=== PATIENT | male | born 1960 | race Caucasian/White ===

== ENCOUNTER 2024-08-20 22:53 | Emergency (ER) | payer OTHER, SELFPAY ==
[2024-08-20 23:01] VITALS: BP 145/91
--- NOTE | 2024-08-20 23:02 | ED.GENMED ---
ED Provider Triage
<Julian Dang PA-C - Last Filed: 08/20/24 23:03>
-
Patient seen by provider in Triage?: Seen in Triage
Attestation: A medical screening examination has been initiated by a qualified medical provider. Based on the assessment performed at this time, it has been determined that an emergent medical condition may exist and the patient has been informed
that further medical evaluation and possible additional diagnostic testing may be needed.
HPI: 64-year-old male presenting to the ER for evaluation of generalized weakness, discomfort all over, not eating or drinking very much over the last 2 to 3 days. Tuesday was vomiting but states no vomiting since and has not had any diarrhea. No
fevers or other infectious symptoms. Appears quite uncomfortable. Labs and EKG ordered
GENERAL: Alert , in no apparent distress
EYE: No visual abnormalities.
NECK: Trachea midline
ENT: No visible abnormalities.
LUNGS: No acute respiratory distress
NEUROLOGICAL: Alert and oriented
SKIN: Skin intact. No visible changes.
MUSCULOSKELETAL: Moving extremities normally
PSYCH: Normal and appropriate interaction.
This is a medical evaluation conducted in person to initiate diagnostic evaluation and provide initial therapeutics. Please see further documentation by the treating clinician.
History of Present Illness
<Julian Dang PA-C - Last Filed: 08/20/24 23:03>
General
Chief Complaint: Weakness
Time Seen by Provider: 08/21/24 00:25
<Ximena Marrero NP - Last Filed: 08/21/24 02:16>
General
Source: patient
Exam Limitations: none
History of Present Illness
History of Present Illness:
Patient to ED wtih complaint of weakness. Atate he vomited Tuesday night. Has not felt like eating since. TO ED via EMS. He denies fever/chills.
Past History
<Julian Dang PA-C - Last Filed: 08/20/24 23:03>
Past History
ED Past Medical History: None
ED Past Surgical History: Orthopedic
Social History
Tobacco: Former smoker
Alcohol: None
Personal:
Living: alone
Employment: Employed
Review of Systems
<Ximena Marrero NP - Last Filed: 08/21/24 02:16>
Review of Systems
Allergies reviewed?: Yes
All Other Systems: ROS reviewed and negative except as documented in HPI and ROS
Constitutional: Reports no symptoms
EENT: Reports no symptoms
Respiratory: Reports no symptoms
Cardiac: Reports no symptoms
ABD/GI: Reports vomiting (Reports vomiting tuesday PM) and anorexia
: Reports no symptoms
Musculoskeletal: Reports no symptoms
Skin: Reports other (ingrown toenail right great toe)
Neurological: Reports weakness
Psychiatric: Reports no symptoms
Phy Exam
<Ximena Marrero NP - Last Filed: 08/21/24 02:16>
General Physical Exam
General Presentation: well appearing and no apparent distress
General age: appears stated age
General Skin: warm and dry
General Habitus: normal
General Mental: alert
Cardiovascular Exam
Cardiovascular Exam: regular rate/rhythm and no edema
Gastrointestinal Exam
Gastrointestinal Exam: normal bowel sounds, non tender, soft, no organomegaly, no pulsatile mass and non distended
Musculoskeletal Exam
Musculoskeletal Exam: full ROM and neuro vasc intact
Skin Exam
Skin Exam: warm/dry and other (Ingrown toenail right great toe)
Psychiatric Exam
Psychiatric Exam: normal mood/affect
Course
<Julian Dang PA-C - Last Filed: 08/20/24 23:03>
Orders/Labs/Results
Orders:
Orders
08/20/24 23:01
Electrocardiogram (*1) Urgent
Reason for Study: Fatigue / Weakness
EKG- Treatment ONCE
08/20/24 23:06
Bedside Glucose- Treatment ONCE
08/20/24 23:17
Complete Blood Count/With Diff Urgent
Comprehensive Metabolic Panel Urgent
Lipase Urgent
Comment: ADD ON
Troponin I Urgent
08/21/24 00:31
Add On- LAB Urgent
Tests Added?: Lipase
0.9% Sodium Chloride 1000 ml [Nss] 1,000 ml IV BOLUS
Ondansetron Injectable [Zofran] 4 mg IV NOW STA
08/21/24 01:28
Orthostatic VS- Treatment ONCE
08/21/24 02:06
Cephalexin Monohydrate [Keflex] 500 mg PO NOW STA
Abnormal Lab Results
08/20/24 08/20/24
23:14 23:17
Absolute Monos (auto) 1.1 H 10^3/uL
(0.1-0.6)
Monocytes % 14.4 H %
(1.7-9.3)
Carbon Dioxide 17 L mmol/L
(22-30)
BUN 31 H mg/dl
(9-20)
Glucose 123 H mg/dl
(70-99)
Total Bilirubin 1.7 H mg/dl
(0.2-1.3)
POC Glucose 121 H mg/dl
(70-99)
08/20/24 23:17
08/20/24 23:17
Vital Signs
Initial and Last Documented VS:
Initial Vital Signs
Pulse Resp BP Pulse Ox
86 28 145/91 100
08/20/24 23:01 08/20/24 23:01 08/20/24 23:01 08/20/24 23:01
Last Documented Vital Signs
Pulse Resp BP Pulse Ox
74 15 134/92 100
08/21/24 02:00 08/21/24 02:00 08/21/24 02:00 08/21/24 02:00
<Ximena Marrero NP - Last Filed: 08/21/24 02:16>
Orders/Labs/Results
Orders:
Orders
08/20/24 23:01
Electrocardiogram (*1) Urgent
Reason for Study: Fatigue / Weakness
EKG- Treatment ONCE
08/20/24 23:06
Bedside Glucose- Treatment ONCE
08/20/24 23:17
Complete Blood Count/With Diff Urgent
Comprehensive Metabolic Panel Urgent
Lipase Urgent
Comment: ADD ON
Troponin I Urgent
08/21/24 00:31
Add On- LAB Urgent
Tests Added?: Lipase
0.9% Sodium Chloride 1000 ml [Nss] 1,000 ml IV BOLUS
Ondansetron Injectable [Zofran] 4 mg IV NOW STA
08/21/24 01:28
Orthostatic VS- Treatment ONCE
08/21/24 02:06
Cephalexin Monohydrate [Keflex] 500 mg PO NOW STA
Abnormal Lab Results
08/20/24 08/20/24
23:14 23:17
Absolute Monos (auto) 1.1 H 10^3/uL
(0.1-0.6)
Monocytes % 14.4 H %
(1.7-9.3)
Carbon Dioxide 17 L mmol/L
(22-30)
BUN 31 H mg/dl
(9-20)
Glucose 123 H mg/dl
(70-99)
Total Bilirubin 1.7 H mg/dl
(0.2-1.3)
POC Glucose 121 H mg/dl
(70-99)
08/20/24 23:17
08/20/24 23:17
Vital Signs
Initial and Last Documented VS:
Initial Vital Signs
Pulse Resp BP Pulse Ox
86 28 145/91 100
08/20/24 23:01 08/20/24 23:01 08/20/24 23:01 08/20/24 23:01
Last Documented Vital Signs
Pulse Resp BP Pulse Ox
74 15 134/92 100
08/21/24 02:00 08/21/24 02:00 08/21/24 02:00 08/21/24 02:00
<Ximena Marrero NP - Last Filed: 08/21/24 02:16>
Update Note
Update Note:
Patient to ED for weakness after vomiting episode tuesday PM. Poor appetite since. No abdominal pain. NO vomiting in ED. Labs reviewed, no concerning findings. WIll dscharge home. Recommend clear liquids with gradual increase in diet. Follow
up with PCP in AM. Also with ingrown toenail right great toe. I offered to give digital block and cut nail away from cuticle however he insists on general anesthesia. I explained that this would not be appropriate however he declines
intervention. Will place on keflex, given number for podiatry follow up . Recommend warm soaks
ED Attending Note
<Julian Dang PA-C - Last Filed: 08/20/24 23:03>
-
Portions of this chart may have been created with voice recognition software.� Occasional wrong word or��sound alike� substitutions may have occurred due to the inherent limitations of voice recognition software.
Discharge Plan
Departure
Patient Disposition: Home (Routine Discharge)
Date of Disposition: 08/21/24
Time of Disposition: 02:07
Patient with high blood pressure during this ER visit?: No
Condition: Good
Covid-19: Not Applicable
Discharge Problem:
Weakness
Instructions: Generalized Weakness (DC), Ingrown Toenail ED, Clear Liquid Diet
Prescriptions:
New
cephalexin 500 mg capsule
500 mg PO TID 10 Days Qty: 30 0RF
No Action
pantoprazole 40 MG tablet,delayed release (DR/EC)
40 mg PO DAILY
Referrals:
Kayla Salas DPM [Specified Professional Personl] - Call in 1-3 days for appt
UNKNOWN - PT NOT,INTERVIEWE [Family Provider] -
Interventions
Interventions:
*Risk Screen - Suicide Last Done: 08/20/24 23:03
*General Assessment Last Done: 08/21/24 01:57
*Neglect/Abuse Screening Last Done: 08/21/24 01:57
*ED COVID-19 Vaccine History Last Done: 08/21/24 01:57
ED- Cardiac Assessment Last Done: 08/21/24 00:39
ED- Neurological Assessment Last Done: 08/21/24 00:39
ED- Pulmonary Assessment Last Done: 08/21/24 00:39
Discharge Date and Time
Print Language: PRYDEINIG
[2024-08-20 23:14] LABS: Glucose - Point of Care 121 mg/dl (70-99)
[2024-08-20 23:29] LABS: % Basophils 0.4 % (0-2); % Eosinophils 0.8 % (0-6); % Immature Granulocytes 0.4 % (0-0.5); % Monocytes 14.4 % (1.7-9.3); Absolute Eosinophils 0.1 10^3/uL (0-0.7); Absolute Lymphocytes 1.7 10^3/uL (1.2-3.4); Absolute Monocytes 1.1 10^3/uL (0.1-0.6); Absolute Neutrophils 4.7 10^3/uL (1.4-6.5); Hematocrit 45.1 % (39.0-52.0); Hemoglobin 16.1 g/dL (13.0-18.0); Mean Corp Hgb Conc. 35.7 g/dL (33.0-37.0); Mean Corpuscular Hgb 30.4 pg (27.0-31.0); Mean Corpuscular Volume 85.3 fL (80.0-94.0); Mean Platelet Volume 9.3 fL (7.4-10.4); Nucleated Red Blood Cells % 0 % (-); Platelet Count 249 10^3/uL (130-400); Red Blood Cell Count 5.29 10^6/uL (4.70-6.10); Red Cell Dist. Width 12.3 % (11.5-14.5); White Blood Cell Count 7.6 10^3/uL (4.8-10.8)
[2024-08-20 23:47] VITALS: BP 106/88
[2024-08-20 23:50] LABS: ALT (SGPT) 39 U/L (0-50); AST (SGOT) 34 U/L (17-59); Albumin 4.7 g/dl (3.5-5.0); Alkaline Phosphatase 52 U/L (38-126); Blood Urea Nitrogen 31 mg/dl (9-20); Carbon Dioxide 17 mmol/L (22-30); Chloride 105 mmol/L (98-107); Glucose 123 mg/dl (70-99); Sodium 141 mmol/L (135-145); Total Bilirubin 1.7 mg/dl (0.2-1.3); Total Protein 7.4 g/dl (6.3-8.2); eGFR > 60.00
[2024-08-20 23:53] LABS: Troponin I < 0.012 ng/ml
[2024-08-21] VITALS (8 sets, daily range): BP systolic 130–145; BP diastolic 89–100; PULSE 76–87; BMI 27.6
[2024-08-21] MEDS: ZOFRAN 4 MG IV (00:35)
[2024-08-21] MEDS: NSS 1000 IV (00:36)
[2024-08-21 00:42] LABS: Glucose - Point of Care 99 mg/dl (70-99)
[2024-08-21 01:15] LABS: Lipase 140 U/L (23-300)
[2024-08-21] MEDS: KEFLEX 500 MG PO (02:17)
== END 2024-08-21 02:23 | disposition home or self-care (01) ==
LOC: EMR 22:53
PROVIDERS: Physician Assistant Medical; EMERGENCY PHYSICIAN Emergency Medicine
DX: R53.1 Weakness (principal); R11.10 Vomiting, unspecified; M79.10 Myalgia, unspecified site; L60.0 Ingrowing nail; Z87.891 Personal history of nicotine dependence
CPT/HCPCS: 99284; 96374; 96361; 80053; 82962; 83690; 84484; 85025; 93005

== ENCOUNTER 2025-04-11 00:23 | Emergency (ER) | payer BC, SELFPAY ==
[2025-04-11 00:26] VITALS: BP 154/96
[2025-04-11 00:35] VITALS: BP 154/85
[2025-04-11 00:36] VITALS: BMI 27.1
--- NOTE | 2025-04-11 00:59 | ED.GENMED ---
History of Present Illness
General
Chief Complaint: Male Genito-Urinary Symptoms
Source: patient
Exam Limitations: none
Time Seen by Provider: 04/11/25 00:54
Nursing documentation reviewed up to this point in time: agreed with
History of Present Illness
History of Present Illness:
65-year-old male presents with trouble urinating, onset a few days ago dribbling unable to empty his bladder here he looks uncomfortable no new meds no prior episodes, bladder scan noted no fevers no nausea or vomiting
Past History
Past History
ED Past Medical History: None
ED Past Surgical History: Orthopedic
Social History
Tobacco: Former smoker
Alcohol: None
Drug: None
Personal:
Living: alone
Employment: Employed
Review of Systems
Review of Systems
All Other Systems: Not applicable
ABD/GI: Reports abdominal pain
: Reports difficulty voiding
Phy Exam
Physical Exam
Physical Exam:
Physical Exam
General: 65 male looks uncomfortable
Neck: No jaundice
Heart: Regular
Lungs: no acute respiratory distress.
Abdomen: Tender suprapubic region
Neuro: alert and oriented. no focal neurological deficits
Skin: no rash
Psychiatric: well kept. interactive and cooperative
Extremities: no edema.
Course
Orders/Labs/Results
Orders:
Orders
04/11/25 00:56
Bladder Scan- Treatment ONCE
Enciso Placement- Treatment ONCE
Reason for insertion: Outlet obstruction
04/11/25 01:09
CT Abd/pel Without Iv Or Oral Urgent
Comment:
Reason For Exam: trouble urinatrion
04/11/25 01:10
Lidocaine 2% [Lidocaine Uro-Jet 2%] 1 syringe TOPICAL NOW STA
diazePAM [Valium Injection] 5 mg IV NOW STA
04/11/25 01:40
Complete Blood Count/With Diff Urgent
Comprehensive Metabolic Panel Urgent
04/11/25 01:41
Urinalysis Reflex To Culture Urgent
Date Specimen was Collected: 04/11/25
Time Specimen was Collected: 01:40
Urine Microscopic Reflex Cult Urgent
04/11/25 01:48
HYDROmorphone [Dilaudid] 1 mg IV NOW STA
04/11/25 02:21
Magnesium Citrate [Citroma] 300 ml PO ONCE ONE
Abnormal Lab Results
04/11/25 04/11/25
01:40 01:41
Absolute Monos (auto) 0.7 H 10^3/uL
(0.1-0.6)
Glucose 113 H mg/dl
(70-99)
Ur Occult Blood Reflex 2+ A
(Negative)
Urine Albumin (Reflex) 2+ A
(Neg - Trace)
04/11/25 01:40
04/11/25 01:40
Vital Signs
Initial and Last Documented VS:
Initial Vital Signs
Temp Pulse Resp BP Pulse Ox
98.7 F 88 18 154/96 98
04/11/25 00:26 04/11/25 00:26 04/11/25 00:26 04/11/25 00:26 04/11/25 00:26
Last Documented Vital Signs
Temp Pulse Resp BP Pulse Ox
98.7 F 88 18 134/89 98
04/11/25 00:26 04/11/25 00:26 04/11/25 00:26 04/11/25 02:27 04/11/25 01:01
Procedures
Urinary Catheter
Procedure completed by: Gallo
Type of urinary catheter: indwelling catheter
Catheter size (burkinan): 18
Urine description: clear
Urine output (ml): 1,200
Additional information:
18 Slovak coud� with aid of Uro-Jet
MDM/Problems Addressed
Differential Diagnosis Includes:
Urinary retention, UTI
MDM/Problems Addressed:
Urinary retention
*Pulse Oximetry
SaO2: 98
Oxygen Mode of Delivery: Room air
Patient hypoxic: no
*Critical Care Note
Total Time (30-74mins, 75-104mins- exclusive of procedures): Not Applicable
Update Note
Update Note:
Bladder scan noted will ask RN to place Enciso check urinalysis
1:10 AM [address] catheter
Will try to get him comfortable check CT scan to rule out a stone or other obstruction try some Valium
I was able to place a catheter without difficulty
Does look like he has a lot of stool in his rectum on the CAT scan
ED Attending Note
-
Portions of this chart may have been created with voice recognition software.� Occasional wrong word or��sound alike� substitutions may have occurred due to the inherent limitations of voice recognition software.
Discharge Plan
Departure
Patient Disposition: Home (Routine Discharge)
Date of Disposition: 04/11/25
Time of Disposition: 02:54
Patient with high blood pressure during this ER visit?: No
Condition: Good
Covid-19: Not Applicable
Discharge Problem:
Acute urinary retention, Constipation
Instructions: How to Care for Your Enciso Catheter, Male, Urinary Retention (DC), Constipation in adults - ED discharge instructions
Prescriptions:
New
polyethylene glycol 3350 [Miralax] 17 gram/dose powder
4 g PO DAILY PRN (Reason: Constipation) Qty: 238 0RF
No Action
pantoprazole 40 MG tablet,delayed release (DR/EC)
40 mg PO DAILY
cephalexin 500 mg capsule
500 mg PO TID 10 Days Qty: 30 0RF
Referrals:
UNKNOWN - PT DOES,NOT KNOW [Family Provider]
Justin Beal Jr., MD [Active, Urology] - Follow up in 5-7 days
Activity Restrictions/Additional Instructions:
Call [facility] urology for follow-up care
Interventions
Interventions:
*Risk Screen - Suicide Last Done: 04/11/25 00:26
*General Assessment Last Done: 04/11/25 00:26
*Neglect/Abuse Screening Last Done: 04/11/25 00:26
*ED- Fall Risk Assessment Last Done: 04/11/25 00:36
*ED COVID-19 Vaccine History Last Done: 04/11/25 00:36
ED-Male Genitourinary Assessment Last Done: 04/11/25 00:36
Discharge Date and Time
Print Language: HEBREW
[2025-04-11] MEDS: VALIUM INJECTION 5 MG IV (01:21)
[2025-04-11 01:51] LABS: Hematocrit 42.8 % (39.0-52.0); Hemoglobin 15.5 g/dL (13.0-18.0); Mean Corp Hgb Conc. 36.2 g/dL (33.0-37.0); Mean Corpuscular Volume 84.1 fL (80.0-94.0); Nucleated Red Blood Cells % 0 % (-); Platelet Count 223 10^3/uL (130-400); Red Cell Dist. Width 13.2 % (11.5-14.5)
[2025-04-11] MEDS: DILAUDID 1 MG IV (01:51)
[2025-04-11 01:55] LABS: Urine Character Clear (Clear)
[2025-04-11] MEDS: LIDOCAINE URO-JET 2% 1 SYRINGE TOPICAL (02:13)
[2025-04-11 02:15] LABS: ALT (SGPT) 38 U/L (0-50); AST (SGOT) 30 U/L (17-59); Albumin 4.9 g/dl (3.5-5.0); Alkaline Phosphatase 64 U/L (38-126); Blood Urea Nitrogen 20 mg/dl (9-20); Calcium 9.7 mg/dl (8.4-10.2); Carbon Dioxide 22 mmol/L (22-30); Chloride 105 mmol/L (98-107); Estimated Creatinine Clearance 75 ml/min; Glucose 113 mg/dl (70-99); Potassium 3.9 mmol/L (3.5-5.1); Sodium 137 mmol/L (135-145); Total Protein 7.7 g/dl (6.3-8.2); eGFR > 60.00
[2025-04-11 02:27] VITALS: BP 134/89
[2025-04-11 02:36] LABS: Urine Squamous Cell >30 /LPF (Few)
[2025-04-11 02:37] LABS: Urine Red Blood Cell 0-2 /HPF (0-2); Urine White Cell 0-2 /HPF (0-5)
[2025-04-11] MEDS: CITROMA 300 ML PO (02:44)
[2025-04-11 03:00] VITALS: BP 147/86
== END 2025-04-11 03:38 | disposition home or self-care (01) ==
LOC: EMR 00:23
PROVIDERS: EMERGENCY PHYSICIAN Emergency Medicine
DX: R33.9 Retention of urine, unspecified (principal); K59.00 Constipation, unspecified; Z87.891 Personal history of nicotine dependence
CPT/HCPCS: 51702; 99284; 96374; 96375; 74176; 80053; 81003; 81015; 85025